=== PATIENT | female | born 1975 | race Hispanic/Latino ===

== ENCOUNTER 2016-08-02 14:44 | Observation (INO) | payer OTHER, MEDICARE ==
[~2016-08-02] VITALS: Ht 154.9 cm; Wt 34.7 kg
[~2016-08-02 14:44] MED LIST: LEVE500T3 PO; MEMA10TA20 PO
[2016-08-02 14:57] VITALS: BP 123/91; PULSE 62; RESP 20; O2SAT 99
--- NOTE | 2016-08-02 15:43 | ED.REPORT ---
HPI-General Illness Date of Service Aug 02, 2016 ED Provider: Gurpreet Garber MD 41 year old female with seizure disorder and early onsey "end-stage" dementia presents to the ER accompanied by her and daughter due to concern for jaw dislocation status post seizure last night. states that she has had dislocated her jaw twice in the past secondary to seizure activity. History is limited due to patient's underlying dementia. Nursing Notes Stated Complaint: DISLOCATED JAW/HAD SEIZURE Chief Complaint: Head, Face, Neck Trauma Nursing Notes Reviewed: Yes Allergies: Coded Allergies: ketamine (Verified Allergy, Unknown, rash, 08/02/16) Scheduled Levetiracetam (Levetiracetam) 500 Mg Tablet 750 MG PO MORNING Levetiracetam (Levetiracetam) 500 Mg Tablet 1,000 MG PO HS Memantine HCl (Memantine HCl) 10 Mg Tablet 10 MG PO BID General Time Seen by MD: 15:42 Chief Complaint Seizure, Other (Jaw Injury) Hx Obtained From: Spouse Arrived By: Walk-in Sudden in Onset?: No Onset Occurred: Yesterday Symptom Duration: Since onset Similar Sx Previous: Yes Past Medical History Past Medical History Notes: PCP: Pinky Neurology: Struck Past Medical History Early onset familial dementia, Nonverbal Decreased responsiveness Seizure disorder - On Keppra Recurrent jaw dislocations during seizures Past Surgical History None reported Family History Dementia Smoking History Never Smoker Social History Cared for at home by and 21 year old son. Alcohol Use: Denies alcohol use Drug Use: Denies drug use Other Social History: Ambulatory Status Wheelchair Review of Systems ROS is limited due to underlying dementia. Full Review of Systems Neurologic: Reports: Seizure Complete sys rev & neg: except as marked. Physical Exam Vital Signs Vital Signs Date Time Temp Pulse Resp B/P Pulse Ox O2 Delivery O2 Flow Rate FiO2 08/02/16 19:35 46 13 88/60 100 Room Air 08/02/16 14:57 36.2 62 20 123/91 99 Room Air Initial VS: Reviewed Neck: Supple, Non-tender, Full range of motion Abdomen / GI: Soft, Non-tender, No guarding, No rebound, No distention Extremities: Vascular intact, Neuro intact, No swelling, No tenderness Skin: Warm, Dry, No cyanosis Alertness: Positive: Responds to pain stimuli, Responds to verb stimuli Head / Eyes: Atraumatic, Normocephalic ENT: Airway patent, Pharynx NL Obvious dislocation of the jaw. Respiratory / Chest: Breath sounds NL, No respiratory distress, No rales, No rhonchi, No wheezing Cardiovascular: Heart rate NL, Regular rhythm, Heart sounds NL, Cap refill not delayed, Peripheral circulation NL Mental Status: Positive: Responds to painful stim, Responds to verbal stim Baseline mental status given severe underlying dementia. Procedures Jaw Reduction Performed by me Informed consent provided Consent from spouse obtained Time-out performed Oxygen administered Pulse oximeter applied conveyor weigher operator applied Hand hygiene observed Standard sterile technique Sedation: Etomidate/propofol. I initiated procedure using etomidate however I was unable to achieve adequate relaxation. Patient had stable blood pressure and therefore I administered aliquots of propofol in order to obtain adequate relaxation. Reduced per examination however immediately subluxed thereafter. Multiple attempts were made by both myself and ultimately by Dr. Pepe Laird. We were unable to achieve reduction as her jar repeatedly subluxed. Procedure unsuccessful Condition stable Tolerated procedure well Patient stable Proced Mod Sedation/Analgesia Time: 19:15 Procedure Performed by: ED physician Sedation Time: 10 - 15 min Consent / Setup: Informed consent provided, Consent from spouse, Time-out performed, Hand hygiene observed, Stand sterile technique, Position supine Indication: Other (Jaw Reduction) Preparation: conveyor weigher operator applied, Pulse oximeter applied, Constant attendance, IV access established, Eval last meal time, Supplemental oxygen, Procedure explained, Suction available, End tidal CO2 mon applied VS Prior to Procedure: All vital signs normal Mallampati: Class & Anatomy: 1 tonsils/uvula/s palate Airway Exam: Normal facial anatomy CVS/Resp Exam: Normal breath sounds Neuro Exam: Alert (at baseline), Responsive Sedation: Sedation: Etomidate, Sedation: Propofol ASA Classification: 1 normal healthy patient Response During Procedure: Handled secretions adeq, Maintained airway well, Oxygenation stable, Sedation appropriate, Vital signs stable Complications During/After: None Reversal: None required Mental Status After Procedure: Response to verbal stim, Response to painful stim, At patient's baseline Post-Procedure: Pt rtn pre-proc baseline Attestation: I performed procedure, I performed sedation Re-Eval/Medical Decision Med Decision/Clinical Course 41 year old female with seizure disorder and early onsey "end-stage" dementia presents to the ER accompanied by her and daughter due to concern for jaw dislocation status post seizure last night. Here in the emergency the patient is borderline hypotensive and at her baseline state of severe dementia. She has clinically dislocated jaw. I initially sought to obtain a CT scan to confirm dislocation of her jaw though I was unsuccessful in obtaining imaging as the patient was unable to stay still despite 1 mg of IV Ativan. Therefore I opted to proceed with sedation and jaw reduction given that she has had multiple similar presentations all due to dislocated jaw. I initially used etomidate due to the patient's borderline blood pressure though I was unable to achieve adequate relaxation despite multiple aliquots of etomidate. Meanwhile the patient's blood pressure actually increased into the 140s to 150s systolic. For that reason I opted to administer aliquots of propofol which achieved good sedation and relaxation. The patient remained hemodynamically stable with good oxygen saturation and end-tidal CO2. Despite multiple attempts I was unable to achieve reduction of her jaw. I was repeatedly able to achieve good alignment though she immediately subluxed thereafter. I requested assistance from my colleague Dr. Pepe Laird who also attempted reduction without success. While the patient was sedated I obtained a CT scan as below: Left anterior TMJ dislocation, abnormal position of the mandibular condyle at the condylar fossa on the right. Apparent progression of hydrocephalus with reference to the prior 2013 CT scan however it is difficult to compare the 2 studies due to differences in angulation and technique. Patient was discussed in detail with Dr. Kt Mcdaniels ENT. Per discussion it may be that the patient has had significant deterioration of her TMJ resulting in chronic dislocation of her jaw. At this time, I feel the patient requires admission as it will be very difficult to obtain follow-up with an oral surgeon due to her multiple underlying comorbidities and severe dementia/inability to ambulate. Moreover, she has not been eating or drinking since her jaw has become dislocated and is unable to feed herself. This was discussed with Dr. judd munson who accepted the patient for further management. Tomorrow we will consult ENT/oral surgery for further assistance with her jaw dislocation. She was admitted in stable condition. Source of Hx: Old records Counseled Regarding: Diagnosis, Need for follow-up, When/why to return to ED Discharge & Departure Primary Impression: TMJ (dislocation of temporomandibular joint) Encounter type: initial encounter Qualified Code: S03.0XXA - Dislocation of jaw, initial encounter Additional Impressions: Severe dementia Hydrocephalus Seizure disorder Failure to thrive Failure to thrive age range: in adult Qualified Code: R62.7 - Adult failure to thrive Discharge Condition All VS Reviewed: Yes Condition: Stable Referrals: Dorian Del Rio MD (PCP) Bri Vance MD (Family) Stephan Attestation Portions of this note were transcribed by Eliot Elizondo. I, Dr. Garber, personally performed the history, physical exam and medical decision-making; I reviewed and confirmed the accuracy of the information in the transcribed note. Signed by: Stephan Hedrick, 08/02/2016 and 18:06 copies to: Bri Vance MD; Dorian Del Rio MD, Beck O MD Aug 02, 2016 15:43 ELIOT ELIZONDO Aug 02, 2016 16:20
[2016-08-02] MEDS ORDERED: Propofol 10 mg/mL 20 mL Inj IVPUSH ONE (15:45)
--- NOTE | 2016-08-02 19:09 | DRSVH ---
PROCEDURE: CT FACE WITHOUT CONTRAST ([id number]) INDICATIONS: jaw deformity, assess for dislocated mandible TECHNIQUE: Noncontrast 1.5 mm thick axial images acquired from the mandible through the frontal sinuses, with co luciano and sagittal reformatting. For radiation dose reduction, the following was used: automated ex posure control. COMPARISON: [facility], CT, CT FACE WO CON, 01/19/2016, 20:20. [facility], M R, SEIZURE BRAIN W & W/O CONT, 09/10/2013, 10:11. [facility], CT, CT FACE WO CON, 016, 1:27. FINDINGS: Image quality: Prominently degraded by persistent patient motion during image acquisition.. Bones and teeth: Quality of visualization is very limited, no definite acute disease. Sinuses: Quality of visualization is very limited, no definite acute disease. Soft tissues: Quality of visualization is very limited, no definite acute disease. Several attempts at obtaining CT scanning to assess for reported jaw deformity were relatively unsuccessful. A defin ite TMJ dislocation is not seen. Note is made of significant hydrocephalus, which appears to to have worsened from the comparison study that included brain imaging 09/10/13. Vascular: Not visualized. IMPRESSION: The quality of visualization is very limited due to 2 persistent patient motion during im age acquisition despite multiple attempts to obtain diagnostic imaging. Note is made of significant hydrocephalus in this patient, partially visualized, but appears present to a greater degree than was previously the case in early 2013. Depending on the clinical status fol lowup by dedicated brain imaging either by CT or MRI may be warranted to compare accurately to the pr ior MRI from 09/10/13. Dictated by: Darius Pinto M.D. on 08/02/2016 at 19:00 Approved by: Darius Pinto M.D. on 08/02/2016 at 19:08
[2016-08-02 19:35] VITALS: BP 88/60; PULSE 46; RESP 13; O2SAT 100
[2016-08-02] MEDS ORDERED: Alum-Mag Hydrox-Simeth 30 mL Suspension PO PRN (19:50)
[2016-08-02] MEDS ORDERED: HYDROmorphone 1 mg/mL Inj IVPUSH PRN (19:50)
[2016-08-02] MEDS ORDERED: Ondansetron 2 mg/mL 2 mL Inj IVPUSH PRN (19:50)
[2016-08-02] MEDS ORDERED: Polyethylene Glycol (PEG) 17 Gm Powder PO PRN (19:50)
[2016-08-02 19:54] VITALS: BP 136/90; PULSE 79; RESP 12; O2SAT 98
[2016-08-02] MEDS: 0.9% Sodium Chloride 1,000 ML IV SCH ×2 (19:54→21:43)
--- NOTE | 2016-08-02 20:01 | DRSVH ---
PROCEDURE: CT FACE WITHOUT CONTRAST ([id number]) INDICATIONS: SCAN AGAIN AFTER JAW RELOCATED TECHNIQUE: Noncontrast 1.5 mm thick axial images acquired from the mandible through the frontal sinuses, with co luciano and sagittal reformatting. For radiation dose reduction, the following was used: automated ex posure control. COMPARISON: [facility], CT, BRAIN W/O CONTRAST, 09/09/2013, 16:50. [facility], CT, CT FACE WO CON, 08/02/2016, 17:38. FINDINGS: Image quality: Excellent. Bones and teeth: Orbital ramirez are intact. Sinus ramirez show no fracture or deformity. Nasal bones and septum are intact. Visualized portions of the mandible demonstrate no fractures or subluxation. Zygomatic arches are intact. Pterygoid plates are intact. Visualized portions of the skull base an d auditory canals are intact. Note is made of an anterior TMJ dislocation on the left and normal configuration of the right. Sinuses: Paranasal sinuses are aerated, without fluid levels, mucosal thickening, or mucoceles. Mas toid air cells are aerated. Soft tissues: No edema, masses, or fluid collections. No enlarged lymph nodes. No soft tissue lace rations or debris. Note is made of relative hydrocephalus, partially visualized faintly in the skull base portion of the study. This appears somewhat more prominent than on a comparison study from 08/11 4 however these studies are very difficult to compare due to differences in angulation and technique. . Vascular: Visualized vascular structures appear normal in the absence of contrast. Bony vascular fo ramina and canals are intact. IMPRESSION: Left anterior TMJ dislocation, abnormal position of the mandibular condyle at the condyla r fossa on the right. Apparent progression of hydrocephalus with reference to the prior 2012 CT scan however it is difficult to compare the 2 studies due to differences in angulation and technique. Dictated by: Darius Pinto M.D. on 08/02/2016 at 19:56 Approved by: Darius Pinto M.D. on 08/02/2016 at 20:01
[2016-08-02 20:10] VITALS: BP 136/90; PULSE 79; RESP 12; O2SAT 98
[2016-08-02 20:13] VITALS: BP 124/79; PULSE 60; RESP 12; O2SAT 100
--- NOTE | 2016-08-02 20:30 | NUR ---
Admit Pt admitted to floor at 2030, escorted by Zahira. Family present at bedside. Med rec no quite complete as family is bringing in new medication from home tonight along with advanced directive. Pt is nonverbal at baseline. All information came from family interview. Report given by Maria Del Carmen Lozoya RN at 2009.
[2016-08-02] MEDS ORDERED: LEVE10006 PO ×2 (20:42→20:43)
[2016-08-02 20:53] VITALS: BP 128/76; PULSE 72; RESP 18; O2SAT 95
[2016-08-02] MEDS ORDERED: BACL10TA PO (22:51)
--- NOTE | 2016-08-02 23:21 | PCM.HPMED ---
Subjective Date of Service Aug 02, 2016 Primary Provider: Admitting Physician: Primary Care Physician: Dorian Del Rio MD Attending Physician: Admit Status: From the Emergency Department, 23-Hour Observation, Non-Telemetry Chief Complaint: Left jaw dislocation History of Present Illness: 41 year old female with seizure disorder and early onsey "end-stage" dementia presents to the ER accompanied by her and daughter due to concern for jaw dislocation status post seizure last night. states that she has had dislocated her jaw twice in the past secondary to seizure activity. Family reported compliance with medications and no missed dose reported. She is unresponsive at baseline and non verbal, totally dependent of family for care She has chronic dysphagia and is on puree diet with her medications. She cannot ambulate at baseline Case discussed with Dr Garber, under conscious sedation he was unable to place jaw back in place. ENT consulted who recommended admission and then retry in the morning Review of Systems: unable to be obtained due to dementia Allergies Coded Allergies: ketamine (Verified Allergy, Unknown, rash, 08/02/16) Home Medications From [facility], not yet confirmed Cara Hernandez [id number] 1975 07/29/2016 01:00 PM 1/ diazepam 12.5 mg-15 mg-17.5 mg-20 mg rectal kit Administer as directed below Keppra 1,000 mg tablet take 1 tablet by oral route in the morning and 1.5 tablets in the evening megestrol 400 mg/10 mL (40 mg/mL) oral suspension take 10 milliliter by oral route every day memantine 10 mg tablet take 1 tablet by oral route 2 times every day multivitamin capsule take 1 capsule by oral route every day Namenda Titration Nick 5 mg-10 mg tablets in a dose pack take by mouth as directed. Namenda Titration Nick 5 mg-10 mg tablets in a dose pack Take by mouth as directed. vitamin E 1,000 unit capsule Take 1 capsule by mouth daily. PMH Dementia Muscle spams Seizure disorder Constipation Chronic dysphagia Depression . Surgical History NO surgical history Family History Mother had Alzheimer Social History Hx Alcohol Use: No Hx Substance Use: No Hx Tobacco Use: No Smoking Status: Never Smoker Living Arrangement: with Family Exam Vital Signs Vital Sign - Last Date Time Temp Pulse Resp B/P Pulse Ox O2 Delivery O2 Flow Rate FiO2 08/02/16 19:35 46 13 88/60 100 Room Air 08/02/16 14:57 36.2 Exam General: Drowsy but unresponsive at baseline No acute Distress Eyes: PERRLA, Scleral Anicteric Mouth: Mouth Normal, Mucous Membranes Moist/[place] Neck: Supple, no Thyromegaly, trachea central. Chest & Lungs: Clear to auscultation & percussion, No adventitious breath sounds, no crackles, no wheeze Cardiovascular: Normal S1, Normal S2, No Murmurs/Rubs/Gallops, Regular Rate/ Rhythm, (No JVD, no peripheral edema) Pulses: Radial (present and equal), Dorsalis Pedi (present and equal) Abdomen: Soft, Non-tender, Non-distended, Normoactive bowel tones. Musculoskeletal: Unremarkable. Normal range of motion, no swollen or erythematous joints Extremities: No edema, no cyanosis, no clubbing. Skin: No rashes. Warm and dry, no erythematous areas Neurological: deferred Lymphatic: Lymph nodes Cervical and Axillary not palpable. Lab and Diagnostics X-Rays, CTs and MRIs CT FACE WITHOUT CONTRAST 08/02 IMPRESSION: The quality of visualization is very limited due to 2 persistent patient motion during image acquisition despite multiple attempts to obtain diagnostic imaging. Note is made of significant hydrocephalus in this patient, partially visualized , but appears present to a greater degree than was previously the case in early 2013. Depending on the clinical status followup by dedicated brain imaging either by CT or MRI may be warranted to compare accurately to the prior MRI from 09/10/13. Dictated by: Darius Pinto M.D. on 08/02/2016 at 19:00 Approved by: Darius Pinto M.D. on 08/02/2016 at 19:08 Assessment & Plan 41-year-old female with reported history of familial early-onset dementia, who presents today with apparent witnessed episode of seizure-type activity and suffered a left jaw dislocation 1. Acute Left jaw dislocation. Present on admission Common occurance with patient but usually was able to be set back in place. Unfortunately there was some difficulty today and ENT had been consulted. - nothing by mouth - ENT consultation in the morning - Dilaudid IV PRN pain 2. Seizure disorder with Muscle Spasm, Chronic - continue Keppra, convert to IV if unable to take PO - continue Baclofen 3. Dementia - continue Namenda dosing - Acetaminophen as needed for mild pain/fever/headache - Bowel regimen as needed - Antiemetic as needed Patient is admitted under observation status with expected length of stay less than 2 midnights due to severity of presenting symptoms, risk of adverse event, and complexity of treatment plan. . Resuscitation Status: DNR/DNI:Do Not Resuscitate/Intubate Cesario Walton MD Aug 02, 2016 19:49
[2016-08-02] MEDS ORDERED: LEVE100014 PO (23:56)
[2016-08-03 00:38] VITALS: BP 130/51; PULSE 67; RESP 16; O2SAT 97
[2016-08-03 06:07] VITALS: BP 114/82; PULSE 62; RESP 16; O2SAT 97
[2016-08-03] MEDS ORDERED: levETIRAcetam 500 mg Tablet PO SCH ×2 (08:30→22:55)
--- NOTE | 2016-08-03 11:37 | NUR ---
Case Management: [place] and Medicare Part D info provided and explained to patient's at bedside at 11:00 am. Questions answered, copies given to [facility] and original H[facility]T[place]O placed on hard chart. SILAS Naranjo RN
[2016-08-03 11:55] VITALS: BP 100/62; PULSE 55; RESP 12; O2SAT 96
--- NOTE | 2016-08-03 13:41 | NUR ---
NUTRITION ASSESSMENT: ASSESS:41 YO female admitted for dislocated jaw due to seizure, which has happened 2 times in the past as well. Pt with chronic dysphagia, on pureed diet at home, currently NPO at this time. PMHx: Seizure disorder with muscle spasms, early onset dementia (nonverbal at baseline), depression, chronic dysphagia, constipation. LABS: Reviewed. No labs available yet. MEDS: Reviewed. GI: No BM reported. SKIN: Medial sacrum with scar of healed PU. CURRENT WT: 34.6 kg. August 2013: 50.9 kg. 2009: 51.3 kg. 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 IBW: 47.7 kg. DIET: NPO. EST. NEEDS (weight gain): 1468-2006 kcals (30-40 kcals/kg BW), 55-70 g protein (1.2-1.5 g/kg IBW) NUTRITION DIAGNOSIS: 1.) Inadequate oral intake related to decreased ability to consume sufficient energy as evidenced by current/chronic disease state (dementia), current NPO status x 1 day, dislocated jaw, severe wt loss and BMI of 14.5. 2.) Chewing /swallowing difficulties related to disease state and dislocated jaw as evidenced by chronic dysphagia with pureed diet texture at home. NUTRITION INTERVENTION: 1.) Continue to try to advanced diet to home diet as able. 2.) Will add supplement once diet has been advanced. MONITOR / EVAL: PO intake, labs, nutritional status. Follow per high nutritional risk guidelines.
[2016-08-03] MEDS: 0.9% Sodium Chloride 1,000 ML IV SCH (15:47)
[2016-08-03 16:29] VITALS: BP 97/62; PULSE 62; RESP 16; O2SAT 96
--- NOTE | 2016-08-03 16:29 | PCM.PNMED ---
Subjective Date of Service Aug 03, 2016 Subjective pt is still drowsy not cooperative ENT Dr.Gary Lozoya stated that this is non-urgent problem, which doesn't require inpatient consult, recommended OP follow up in one week in his office. This plan was also confirmed with Dr.Steven Leon general surgery talking to Dr.Gary Lozoya directly. Exam Vital Signs Vital Sign - Last Date Time Temp Pulse Resp B/P Pulse Ox O2 Delivery O2 Flow Rate FiO2 08/03/16 11:55 36.9 55 12 100/62 96 Room Air 08/03/16 00:38 2.00 Intake and Output 08/02/16 08/02/16 08/03/16 Cumulative From/Thru 15:00 23:00 07:00 08/02/16 14:57 - 08/03/16 06:07 Intake Total 1000 ml 830 ml 1830 ml Balance 1000 ml 830 ml 1830 ml Intake IV Total 1000 ml 830 ml 1830 ml # Voids 3 3 Exam drowsy, non-verbal no JVD, MMM, no LAD, mandible dislocated not reducted RRR, nl s1, s2 no mrg CTAB, no w,c S,ND,NT,normoactive BS+ warm, no edema, pulses 2/2 IVs and Medications Medications Reviewed: Medications were reviewed in detail Lab and Diagnostics X-Rays, CTs and MRIs CT FACE WITHOUT CONTRAST 08/02 IMPRESSION: The quality of visualization is very limited due to 2 persistent patient motion during image acquisition despite multiple attempts to obtain diagnostic imaging. Note is made of significant hydrocephalus in this patient, partially visualized , but appears present to a greater degree than was previously the case in early 2013. Depending on the clinical status followup by dedicated brain imaging either by CT or MRI may be warranted to compare accurately to the prior MRI from 09/10/13. Dictated by: Darius Pinto M.D. on 08/02/2016 at 19:00 Approved by: Darius Pinto M.D. on 08/02/2016 at 19:08 Assessment & Plan 41-year-old female with reported history of familial early-onset dementia, who presents today with apparent witnessed episode of seizure-type activity and suffered a left jaw dislocation 1. Acute Left jaw dislocation. Present on admission, this is the third episode. prior two episodes were manually reduction successfull in ED with sedation. -discussed with ENT, Gen Surg as above -will try reconsult with another ENT physician tomorrow, if still not successful then d/c with OP follow up. Given patient's MS, sedation, unable to d /c home today anyway. -will try puree diet once pt wakes up. 2. Seizure disorder with Muscle Spasm, Chronic - continue Keppra, convert to IV if unable to take PO - continue Baclofen 3. Dementia - continue Namenda dosing dispo: likely tomorrow, will try s/s eval, if possible DNR/DNI . Resuscitation Status: DNR/DNI:Do Not Resuscitate/Intubate Time spent 35min Yohana Villaesñor MD Aug 03, 2016 16:24
--- NOTE | 2016-08-03 18:10 | PCM.DIMED ---
Discharge Instructions Date of Service Aug 03, 2016 Dates of Hospitalization Aug 02, 2016 at 19:53 Discharge Diagnosis Discharge Diagnosis seizure episode dislocated mandible Patient Instructions You were hospitalized with jaw dislocation, failed manual reduction in ED. Please note that your jaw was not reducted by specialist during hospitalization. Please return to hospital if this problems continue. Follow-up plan Follow up plan discussed in details with patient If this dislocation continues, please follow up with Dr.Gary Lozoya in [place] [facility], in a week. Follow-up Provider: Dorian Del Rio MD Follow-up with PCP in: 2 weeks Provider: Kt Lozoya MD Follow-up in: 1 week Yohana Villaseñor MD Aug 03, 2016 18:10
--- NOTE | 2016-08-03 19:23 | NUR ---
Discharge pt discharged at 1915. Her was given discharge instructions and confirmed understanding of those instructions. He was instructed to bring the pt back to the emergency department tomorrow for follow up. IV's were discontinued. The pt's family transported her via wheelchair to their vehicle and would be driving her home. She did not leave with any prescriptions.
--- NOTE | 2016-08-03 20:53 | PCM.DC.MED ---
Discharge Summary Date of Service Aug 03, 2016 Dates of Hospitalization Date of Hospital Admission Aug 02, 2016 at 19:53 Date of Discharge: Aug 03, 2016 Providers: Admitting Physician: Cesario Walton MD Primary Care Physician: Dorian Del Rio MD Attending Physician: Cesario Walton MD Diagnosis at Time of Discharge Diagnosis at Time of Discharge seizure episode dislocated mandible Consultations ENT Dr.Gary Lozoya Procedures XRay, CTs & MRIs PROCEDURE: CT FACE WITHOUT CONTRAST ([id number]) INDICATIONS: SCAN AGAIN AFTER JAW RELOCATED TECHNIQUE: Noncontrast 1.5 mm thick axial images acquired from the mandible through the frontal sinuses, with coronal and sagittal reformatting. For radiation dose reduction, the following was used: automated exposure control. COMPARISON: [facility], CT, BRAIN W/O CONTRAST, 09/09/2013, 16:50. [facility], CT, CT FACE WO CON, 08/02/2016, 17:38. FINDINGS: Image quality: Excellent. Bones and teeth: Orbital ramirez are intact. Sinus ramirez show no fracture or deformity. Nasal bones and septum are intact. Visualized portions of the mandible demonstrate no fractures or subluxation. Zygomatic arches are intact. Pterygoid plates are intact. Visualized portions of the skull base and auditory canals are intact. Note is made of an anterior TMJ dislocation on the left and normal configuration of the right. Sinuses: Paranasal sinuses are aerated, without fluid levels, mucosal thickening, or mucoceles. Mastoid air cells are aerated. Soft tissues: No edema, masses, or fluid collections. No enlarged lymph nodes. No soft tissue lacerations or debris. Note is made of relative hydrocephalus, partially visualized faintly in the skull base portion of the study. This appears somewhat more prominent than on a comparison study from however these studies are very difficult to compare due to differences in angulation and technique.. Vascular: Visualized vascular structures appear normal in the absence of contrast. Bony vascular foramina and canals are intact. IMPRESSION: Left anterior TMJ dislocation, abnormal position of the mandibular condyle at the condylar fossa on the right. Apparent progression of hydrocephalus with reference to the prior 2012 CT scan however it is difficult to compare the 2 studies due to differences in angulation and technique. Dictated by: Darius Pinto M.D. on 08/02/2016 at 19:56 Approved by: Darius Pinto M.D. on 08/02/2016 at 20:01 Brief History H&P obtained by on 08/02 41 year old female with seizure disorder and early onsey "end-stage" dementia presents to the ER accompanied by her and daughter due to concern for jaw dislocation status post seizure last night. states that she has had dislocated her jaw twice in the past secondary to seizure activity. Family reported compliance with medications and no missed dose reported. She is unresponsive at baseline and non verbal, totally dependent of family for care She has chronic dysphagia and is on puree diet with her medications. She cannot ambulate at baseline Case discussed with Dr Garber, under conscious sedation he was unable to place jaw back in place. ENT consulted who recommended admission and then retry in the morning Hospital Course 41-year-old female with reported history of familial early-onset dementia, who presents today with apparent witnessed episode of seizure-type activity and suffered a left jaw dislocation 1. Acute Left jaw dislocation after seizure episode, this is the third episode. Prior two episodes, mandible was manually reducted successfully in ED with sedation.At this time, manual reduction failed multiple times by ED physicians, ENT was consulted in ED, decision was made to admit patient with ENT follow up today for manual reduction at an inpatient. However, I spoke to ENT Dr.Gary Lozoya today who were consulted yesterday, stated that this is not emergent case, does not require ENT evaluation now, recommended soft diet, follow up with outpatient in ENT clinic in a week. Again, General surgery Dr.Steve Leon had same answer with direct contact to . Family was not in line with this suggestion after lengthy discussion with and two sons. Finally, family wanted to either go to different facility or coming back to ED tomorrow. Patient is being discharged home as there was nothing medically offer to patient at this time. 2. Seizure disorder with Muscle Spasm, Chronic, continued Keppra, convert to IV if unable to take PO, continued Baclofen 3. Dementia. continued Namenda dosing . Exam Vital Signs (Last) Date Time Temp Pulse Resp B/P Pulse Ox O2 Delivery O2 Flow Rate FiO2 08/03/16 16:29 36.6 62 16 97/62 96 Room Air 08/03/16 00:38 2.00 Exam drowsy, non-verbal, not following commands(at baseline per family) dislocated mandible, RRR nl s1 s2 no mrg CTAB no w,c S,ND,NT,BS+ warm, no edema Discharge Medications Discharge Medications Levetiracetam (Levetiracetam) 1,000 Mg Tablet 1,000 MG PO MORNING (Reported) Levetiracetam (Levetiracetam) 1,000 Mg Tablet 1,500 MG PO QPM (Reported) As needed Baclofen (Baclofen) 10 Mg Tablet 5-10 MG PO TID PRN PRN For Spasm (Reported) Followup Plan Disposition: home Follow-up plan Follow up plan discussed in details with patient If this dislocation continues, please follow up with Dr.Gary Lozoya in [facility], in a week. Patient Instructions You were hospitalized with jaw dislocation, failed manual reduction in ED. Please note that your jaw was not reducted by specialist during hospitalization. Please return to hospital if this problems continue. Follow-up Provider: Dorian DelR io MD Follow-up with PCP in: 2 weeks Provider: Kt Lozoya MD Follow-up in: 1 week Time spent 80min Yohana Villaseñor MD Aug 03, 2016 20:53
== END 2016-08-03 19:14 | disposition home or self-care (01) ==
LOC: SED 14:44 → MOC 19:53
PROVIDERS: ADMIT Hospitalist; ATTEND Hospitalist
DX: S03.02XA Dislocation of jaw, left side, initial encounter (principal); G40.909 Epilepsy, unspecified, not intractable, without status epilepticus; F03.90 Unspecified dementia, unspecified severity, without behavioral disturbance, psychotic disturbance, mood disturbance, and anxiety; G91.9 Hydrocephalus, unspecified; R62.7 Adult failure to thrive; X58.XXXA Exposure to other specified factors, initial encounter; Y93.9 Activity, unspecified; Y99.8 Other external cause status; Y92.9 Unspecified place or not applicable; Z88.4 Allergy status to anesthetic agent; R13.19 Other dysphagia; Z66 Do not resuscitate
CPT/HCPCS: 21480; 70486; 94799; 96374; 99283; G0378; J1170; J2060; J7030

== ENCOUNTER 2016-08-04 07:34 | Emergency (ER) | payer OTHER, MEDICARE ==
[~2016-08-04 07:34] MED LIST changes: +BACL10TA PO; +LEVE10006 PO; -LEVE500T3 PO; -MEMA10TA20 PO
[2016-08-04 07:45] VITALS: BP 121/82; PULSE 63; RESP 16; O2SAT 100
--- NOTE | 2016-08-04 08:11 | ED.REPORT ---
HPI-General Illness Date of Service Aug 04, 2016 ED Provider: Erinn Patel MD 41 year old female with seizure disorder and early onsey "end-stage" dementia presents to the ER accompanied by her and son due to concern for jaw dislocation status post seizure two days ago. She was seen two days ago at [facility] by Dr. Garber, at which time he put the jaw back into place, but it will not stay. She has dementia and her baseline is non-verbal and takes in liquid pureed food with a straw. She is currently able to eat and keep foods down. 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 He feels that adequate care was not given at their previous visit. History is limited due to patient's underlying dementia. Nursing Notes Stated Complaint: POSSIBLE DISLOCATED JAW Chief Complaint: General Complaint Nursing Notes Reviewed: Yes Allergies: Coded Allergies: ketamine (Verified Allergy, Unknown, rash, 08/02/16) Scheduled Levetiracetam (Levetiracetam) 1,000 Mg Tablet 1,000 MG PO MORNING Levetiracetam (Levetiracetam) 1,000 Mg Tablet 1,500 MG PO QPM Scheduled PRN Baclofen (Baclofen) 10 Mg Tablet 5-10 MG PO TID PRN PRN For Spasm General Time Seen by MD: 08:00 Chief Complaint Other (dislocated jaw) Hx Obtained From: Spouse Arrived By: Walk-in Sudden in Onset?: Yes Onset Occurred: 2 days ago Symptom Duration: Since onset Recent Healthcare: Recent doctor visit Similar Sx Previous: Yes Past Medical History Past Medical History Notes: PCP: [facility] Neurology: Struck Past Medical History Early onset familial dementia, Nonverbal Decreased responsiveness Seizure disorder - On Keppra Recurrent jaw dislocations during seizures Past Surgical History None reported Family History Dementia Smoking History Never Smoker Social History Cared for at home by and 21 year old son. Alcohol Use: Denies alcohol use Drug Use: Denies drug use Other Social History: Ambulatory Status Wheelchair Review of Systems Unable to Obtain ROS Patient condition, Mental status Physical Exam Vital Signs Vital Signs Date Time Temp Pulse Resp B/P Pulse Ox O2 Delivery O2 Flow Rate FiO2 08/04/16 07:45 36.8 63 16 121/82 100 Room Air Initial VS: Reviewed Alertness: Positive: Somnolent sleeping comfortably Head / Eyes: Normocephalic jaw dislocated to right held open at 1cm Interpretation & Diagnostics Lab Results Interpretation Test 08/04/16 11:30 Re-Eval/Medical Decision Med Decision/Clinical Course long discussion with and caregiver son. Explained our thinking, the processes involved and answered all questions. Time of Eval: 10:26 Re-Evaluation/Progress Note: Pt rechecked and is sleeping. Discussed plan of treatment at length with . Explained that it is a possiblity that a ligament in her jaw is torn and the jaw will not stay in place. Counseled Regarding: Diagnosis, Lab results, Need for follow-up, When/why to return to ED Discharge & Departure Primary Impression: Jaw dislocation Additional Impressions: Dementia Seizure disorder Disposition: Home Discharge Condition All VS Reviewed: Yes Condition: Stable Additional Instructions: Thank you for coming to the Emergency Department today. I am so sorry you had such a frustrating experience yesterday. I have talked with the emergency room doctors as well as the ear nose and throat doctor and the oral surgeon. At this point, it is likely that your 's jaw will be permanently dislocated. She has most likely torn some ligaments that hold the jaw fully in place with recurrent dislocations from her seizures. Additional attempts at sedation, relocation, surgeries and such will likely cause more harm than good at this point. She can still eat and drink, and this is the biggest concern with this problem. You can certainly try any repositioning to see if this makes a difference. Please give her Tylenol for pain behaviors or indication of pain. I don't think that extra muscle relaxers will be of any benefit. We did check Return to the Emergency Department if you experience any new or worsening symptoms. We did check her Keppra level for Dr. boland today. I wish you all the very best. Thank you again for your patience and understanding. Referrals: Dorian Boland MD (PCP) Bri Vance MD (Family) Joshua Attestation Portion of this note were transcribed by Mora Puentes. I, Dr. Patel, personally performed the history, physical exam, and medical decision-making: I reviewed and confirmed the accuracy for the information in the transcribed note. Signed by: joshua Mix, 08/04/16 1200 copies to: Bri Vance MD; Dorian Boland MD, Shawna L MD Aug 04, 2016 08:11 MORA PUENTES Aug 04, 2016 10:30
== END 2016-08-04 11:55 | disposition home or self-care (01) ==
LOC: SED 07:34
DX: S03.01XA Dislocation of jaw, right side, initial encounter (principal); F03.90 Unspecified dementia, unspecified severity, without behavioral disturbance, psychotic disturbance, mood disturbance, and anxiety; R56.9 Unspecified convulsions; X58.XXXA Exposure to other specified factors, initial encounter; Y93.89 Activity, other specified; Y92.9 Unspecified place or not applicable; Y99.9 Unspecified external cause status; Z88.8 Allergy status to other drugs, medicaments and biological substances